=== PATIENT | male | born 1950 | race Caucasian/White ===

== ENCOUNTER → 2018-01-19 09:18 | Outpatient (CLI) | payer MEDICARE, SELFPAY ==
[2018-01-19 10:27] LABS: Hemoglobin A1C% w Est Avg Glu 5.7 % (4.0-6.0)
[2018-01-19 10:32] LABS: Alanine Aminotransferase 151 IU/L (21-72); Albumin 4.2 g/dL (3.5-5.0); Albumin Globulin Ratio 1.1 (1.0-2.8); Alkaline Phosphatase 89 U/L (38-126); Aspartate Aminotransferase 168 IU/L (17-59); BUN Creatinine Ratio 20.9 (6-22); Bilirubin Total 0.9 mg/dL (0.2-1.3); Blood Urea Nitrogen 23 mg/dL (9-20); Calcium 9.2 mg/dL (8.4-10.2); Carbon Dioxide 27 mmol/L (22-32); Chloride 104 mmol/L (98-107); Cholesterol 105 mg/dL (140-199); Estimated Glomerular Filt Rate > 60.0 mL/min (>60); Globulin 3.9 g/dL (1.7-4.1); Glucose 112 mg/dL (80-110); HDL Cholesterol 52 mg/dL (40-60); HEMOLYSIS 18 (0-50); LDL Cholesterol Calculated 20 mg/dL (<100); Potassium 4.3 mmol/L (3.4-5.1); Sodium 142 mmol/L (137-145); Total Protein 8.1 g/dL (6.3-8.2); Triglycerides 166 mg/dL (35-150)
[2018-01-19 11:16] LABS: Thyroid Stimulating Hormone 1.76 uIU/mL (0.47-4.68)
== END ==
PROVIDERS: PCP Family Medicine; Visit Provider Family Medicine
DX: E03.9 Hypothyroidism, unspecified (principal); E78.5 Hyperlipidemia, unspecified; I10 Essential (primary) hypertension
CPT/HCPCS: 36415; 80053; 80061; 83036; 84443

== ENCOUNTER → 2018-02-18 09:07 | Outpatient (CLI) | payer MEDICARE, SELFPAY ==
[2018-02-18 09:39] LABS: Add Manual Diff / Slide Review NO; Basophils Percent Auto 0.2 % (0-2); Eosinophils Percent Auto 1.3 % (2-4); Hematocrit 47.8 % (41-53); Hemoglobin 16.6 g/dL (13.5-17.5); Lymphocytes Percent Auto 58.1 % (25-40); Mean Corpuscular HGB Conc 34.8 % (30-36); Mean Corpuscular Hemoglobin 32.5 PG (26-34); Mean Corpuscular Volume 93.6 fL (80-100); Monocytes Percent Auto 6.4 % (3-14); Neutrophils Absolute Auto 5100 /uL (1500-7000); Platelet Count 151 X10^3/uL (150-400); Red Blood Cell Count 5.11 X10^6/uL (4.5-5.9); Red Cell Distribution Width 13.2 % (11.6-14.8)
[2018-02-18 10:00] LABS: Alanine Aminotransferase 139 IU/L (21-72); Albumin 4.2 g/dL (3.5-5.0); Albumin Globulin Ratio 1.1 (1.0-2.8); Alkaline Phosphatase 81 U/L (38-126); Aspartate Aminotransferase 120 IU/L (17-59); BUN Creatinine Ratio 18.6 (6-22); Bilirubin Total 0.8 mg/dL (0.2-1.3); Blood Urea Nitrogen 26 mg/dL (9-20); Carbon Dioxide 28 mmol/L (22-32); Chloride 102 mmol/L (98-107); Estimated Glomerular Filt Rate 50.5 mL/min (>60); Globulin 3.7 g/dL (1.7-4.1); Glucose 116 mg/dL (80-110); HEMOLYSIS < 15 (0-50); Potassium 5.1 mmol/L (3.4-5.1); Sodium 144 mmol/L (137-145); Total Protein 7.9 g/dL (6.3-8.2)
== END ==
PROVIDERS: PCP Family Medicine; Visit Provider Family Medicine
DX: R74.0 Nonspecific elevation of levels of transaminase and lactic acid dehydrogenase [LDH] (principal); R23.8 Other skin changes
CPT/HCPCS: 36415; 80053; 85025

== ENCOUNTER → 2018-09-14 09:53 | Outpatient (CLI) | payer MEDICARE, SELFPAY ==
[2018-09-14 10:21] LABS: Add Manual Diff / Slide Review NO; Basophils Absolute Auto 100 /uL (0-100); Basophils Percent Auto 0.5 % (0-2); Eosinophils Absolute Auto 200 /uL (0-450); Eosinophils Percent Auto 1.1 % (2-4); Hematocrit 46.9 % (41-53); Lymphocytes Absolute Auto 10500 /uL (1100-4500); Lymphocytes Percent Auto 57.7 % (25-40); Mean Corpuscular HGB Conc 34.2 % (30-36); Mean Corpuscular Hemoglobin 32.3 PG (26-34); Mean Corpuscular Volume 94.4 fL (80-100); Monocytes Absolute Auto 900 /uL (0-900); Monocytes Percent Auto 4.8 % (3-14); Neutrophils Absolute Auto 6500 /uL (1500-7000); Neutrophils Percent Auto 35.9 % (50-75); Platelet Count 149 X10^3/uL (150-400); Red Blood Cell Count 4.96 X10^6/uL (4.5-5.9); Red Cell Distribution Width 13.3 % (11.6-14.8); White Blood Cell Count 18.2 X10^3/uL (4.5-11.0)
[2018-09-14 10:36] LABS: Alanine Aminotransferase 36 IU/L (21-72); Albumin 4.4 g/dL (3.5-5.0); Albumin Globulin Ratio 1.2 (1.0-2.8); Alkaline Phosphatase 76 U/L (38-126); Aspartate Aminotransferase 27 IU/L (17-59); BUN Creatinine Ratio 14.3 (6-22); Bilirubin Total 0.6 mg/dL (0.2-1.3); Blood Urea Nitrogen 20 mg/dL (9-20); Calcium 9.6 mg/dL (8.4-10.2); Carbon Dioxide 29 mmol/L (22-32); Chloride 102 mmol/L (98-107); Estimated Glomerular Filt Rate 50.5 mL/min (>60); Globulin 3.8 g/dL (1.7-4.1); Glucose 109 mg/dL (80-110); HEMOLYSIS < 15 (0-50); Potassium 5.3 mmol/L (3.4-5.1); Sodium 141 mmol/L (137-145); Total Protein 8.2 g/dL (6.3-8.2)
== END ==
PROVIDERS: PCP Family Medicine; Visit Provider Family Medicine
DX: R89.9 Unspecified abnormal finding in specimens from other organs, systems and tissues (principal)
CPT/HCPCS: 36415; 80053; 85025

== ENCOUNTER → 2019-08-03 10:16 | Outpatient (CLI) | payer MEDICARE, SELFPAY ==
[2019-08-03 11:52] LABS: Hematocrit 43.9 % (41-53); Mean Corpuscular HGB Conc 34.2 % (30-36); Mean Corpuscular Hemoglobin 32.1 PG (26-34); Mean Corpuscular Volume 93.8 fL (80-100); Platelet Count 148 X10^3/uL (150-400); Red Blood Cell Count 4.68 X10^6/uL (4.5-5.9); Red Cell Distribution Width 13.2 % (11.6-14.8); White Blood Cell Count 14.6 X10^3/uL (4.5-11.0)
[2019-08-03 11:56] LABS: Alanine Aminotransferase 50 IU/L (<50); Albumin 4.5 g/dL (3.5-5.0); Albumin Globulin Ratio 1.2 (1.0-2.8); Alkaline Phosphatase 77 U/L (38-126); Aspartate Aminotransferase 45 IU/L (17-59); BUN Creatinine Ratio 20.9 (6-22); Bilirubin Total 0.8 mg/dL (0.2-1.3); Blood Urea Nitrogen 24 mg/dL (9-20); Calcium 9.5 mg/dL (8.4-10.2); Carbon Dioxide 27 mmol/L (22-32); Chloride 104 mmol/L (98-107); Cholesterol 101 mg/dL (140-199); Estimated Glomerular Filt Rate > 60.0 mL/min (>60); Globulin 3.7 g/dL (1.7-4.1); Glucose 107 mg/dL (80-110); HDL Cholesterol 31 mg/dL (40-60); HEMOLYSIS 28 (0-50); LDL Cholesterol Calculated 47 mg/dL (<100); Potassium 4.5 mmol/L (3.4-5.1); Sodium 139 mmol/L (137-145); Total Protein 8.2 g/dL (6.3-8.2); Triglycerides 113 mg/dL (35-150); Uric Acid 10.5 mg/dL (3.5-8.5)
[2019-08-03 12:06] LABS: Neutrophils Absolute Manual 7008 /uL (3000-5900); RBC Morphology Normal Morphology; Smudge Cells 2+; Total Cells Counted 100
[2019-08-03 12:47] LABS: TSH w/ Reflex to FT4 1.71 uIU/mL (0.47-4.68)
== END ==
PROVIDERS: PCP Family Medicine; Referring Provider Family Medicine; Visit Provider Family Medicine
DX: D72.829 Elevated white blood cell count, unspecified (principal); E03.9 Hypothyroidism, unspecified; I10 Essential (primary) hypertension; E78.5 Hyperlipidemia, unspecified; M10.9 Gout, unspecified
CPT/HCPCS: 36415; 80053; 80061; 84443; 84550; 85025

== ENCOUNTER → 2019-08-10 09:44 | Outpatient (CLI) | payer MEDICARE, SELFPAY ==
[2019-08-10 11:42] LABS: Hematocrit 43.1 % (41-53); Mean Corpuscular HGB Conc 34.9 % (30-36); Mean Corpuscular Hemoglobin 32.7 PG (26-34); Mean Corpuscular Volume 93.9 fL (80-100); Platelet Count 137 X10^3/uL (150-400); Red Blood Cell Count 4.59 X10^6/uL (4.5-5.9); Red Cell Distribution Width 13.2 % (11.6-14.8); White Blood Cell Count 14.9 X10^3/uL (4.5-11.0)
[2019-08-10 12:19] LABS: Neutrophils Absolute Manual 8046 /uL (3000-5900); Total Cells Counted 100
[2019-08-10 12:20] LABS: Smudge Cells 2+
--- NOTE | 2019-08-29 09:43 | ONC.MSW ---
Description: New Referral Navigation Activity: Reviewed referral for acuity, medical status, and immediate needs. Forwarded to scheduling for next available initial consult time.
== END ==
PROVIDERS: PCP Family Medicine; Referring Provider Family Medicine; Visit Provider Family Medicine
DX: D72.829 Elevated white blood cell count, unspecified (principal)
CPT/HCPCS: 36415; 85025

== ENCOUNTER → 2019-10-10 15:01 | Outpatient (CLI) | payer MEDICARE, SELFPAY ==
--- NOTE | 2019-10-10 15:02 | DI.RAD.S_ITS ---
PROCEDURE: XR FOOT LT MIN 3V INDICATIONS: left forefoot pain x2 days, remote h/o fx TECHNIQUE: 3 views of the foot were acquired. COMPARISON: None. FINDINGS: Bones: Irregularity at the 3rd and 4th digit proximal phalanges. This may be the sequelae of remote fracture. No periosteal reaction. No dislocations. No suspicious bony lesions. Soft tissues: No tibiotalar joint effusion. Achilles tendon appears normal. IMPRESSION: No definite acute fracture. Fractures of the 3rd and 4th digit proximal phalanges. Suspect chronic fractures. Correlate for point tenderness. Dictated by: Demetri Rader M.D. on 10/10/2019 at 15:33 Approved by: Demetri Rader M.D. on 10/10/2019 at 15:36
== END ==
PROVIDERS: PCP Family Medicine; Referring Provider Family Medicine; Visit Provider Family Medicine
DX: M79.672 Pain in left foot (principal); S92.512A Displaced fracture of proximal phalanx of left lesser toe(s), initial encounter for closed fracture; X58.XXXA Exposure to other specified factors, initial encounter
CPT/HCPCS: 73630

== ENCOUNTER → 2019-12-12 08:15 | Outpatient (CLI) | payer MEDICARE, SELFPAY | PROVIDERS: PCP Family Medicine; Referring Provider Family Medicine; Visit Provider Family Medicine | DX: M10.9 Gout, unspecified (principal) | CPT/HCPCS: 36415; 84550 ==

== ENCOUNTER → 2020-01-16 09:36 | Outpatient (CLI) | payer MEDICARE, SELFPAY ==
[2020-01-16 11:28] LABS: Uric Acid 7.5 mg/dL (3.5-8.5)
== END ==
PROVIDERS: PCP Family Medicine; Referring Provider Family Medicine; Visit Provider Family Medicine
DX: M10.071 Idiopathic gout, right ankle and foot (principal)
CPT/HCPCS: 36415; 84550

== ENCOUNTER → 2020-02-10 10:41 | Outpatient (CLI) | payer MEDICARE, SELFPAY ==
[2020-02-10 12:06] LABS: Add Manual Diff / Slide Review NO; Basophils Absolute Auto 100 /uL (0-100); Basophils Percent Auto 0.4 % (0-2); Eosinophils Absolute Auto 300 /uL (0-450); Eosinophils Percent Auto 2.1 % (2-4); Hematocrit 47.5 % (41-53); Hemoglobin 15.7 g/dL (13.5-17.5); Lymphocytes Absolute Auto 7700 /uL (1100-4500); Lymphocytes Percent Auto 61.5 % (25-40); Mean Corpuscular HGB Conc 33.1 % (30-36); Mean Corpuscular Hemoglobin 31.9 PG (26-34); Mean Corpuscular Volume 96.4 fL (80-100); Monocytes Absolute Auto 700 /uL (0-900); Monocytes Percent Auto 5.4 % (3-14); Neutrophils Absolute Auto 3800 /uL (1500-7000); Neutrophils Percent Auto 30.6 % (50-75); Platelet Count 137 X10^3/uL (150-400); Red Blood Cell Count 4.92 X10^6/uL (4.5-5.9); Red Cell Distribution Width 14.3 % (11.6-14.8); White Blood Cell Count 12.5 X10^3/uL (4.5-11.0)
[2020-02-10 12:16] LABS: Uric Acid 6.7 mg/dL (3.5-8.5)
[2020-02-10 12:30] LABS: Alanine Aminotransferase 39 IU/L (<50); Albumin 4.2 g/dL (3.5-5.0); Albumin Globulin Ratio 1.1 (1.0-2.8); Alkaline Phosphatase 76 U/L (38-126); Aspartate Aminotransferase 33 IU/L (17-59); BUN Creatinine Ratio 23.1 (6-22); Bilirubin Total 0.4 mg/dL (0.2-1.3); Blood Urea Nitrogen 28 mg/dL (9-20); Calcium 9.4 mg/dL (8.4-10.2); Carbon Dioxide 30 mmol/L (22-32); Chloride 105 mmol/L (98-107); Estimated Glomerular Filt Rate 59.6 mL/min (>60); Globulin 3.7 g/dL (1.7-4.1); Glucose 104 mg/dL (80-110); HEMOLYSIS 17 (0-50); Potassium 4.5 mmol/L (3.4-5.1); Sodium 140 mmol/L (137-145); Total Protein 7.9 g/dL (6.3-8.2)
== END ==
PROVIDERS: Internal Medicine; PCP Family Medicine; Referring Provider Family Medicine; Visit Provider Family Medicine
DX: D72.820 Lymphocytosis (symptomatic) (principal); M10.071 Idiopathic gout, right ankle and foot
CPT/HCPCS: 36415; 80053; 84550; 85025

== ENCOUNTER → 2020-03-19 10:03 | Outpatient (CLI) | payer MEDICARE, SELFPAY ==
[2020-03-19 11:20] LABS: Uric Acid 5.2 mg/dL (3.5-8.5)
== END ==
PROVIDERS: PCP Family Medicine; Referring Provider Family Medicine; Visit Provider Family Medicine
DX: M10.071 Idiopathic gout, right ankle and foot (principal)
CPT/HCPCS: 36415; 84550

== ENCOUNTER → 2020-05-04 13:36 | Outpatient (CLI) | payer MEDICARE, SELFPAY ==
[2020-05-04] MEDS: COVID-19 VACC, Ad26(JANSSEN)/PF 0.5 ML IM (13:38)
== END ==
PROVIDERS: PCP Family Medicine; Visit Provider Internal Medicine
DX: Z23 Encounter for immunization (principal)
CPT/HCPCS: 0031A; 91303

== ENCOUNTER → 2020-10-09 10:59 | Outpatient (CLI) | payer MEDICARE, SELFPAY ==
[2020-10-09 11:33] LABS: Alanine Aminotransferase 56 IU/L (<50); Albumin Globulin Ratio 1.2 (1.0-2.8); Alkaline Phosphatase 63 U/L (38-126); Aspartate Aminotransferase 66 IU/L (17-59); Bilirubin Total 0.6 mg/dL (0.2-1.3); Blood Urea Nitrogen 26 mg/dL (9-20); Calcium 9.3 mg/dL (8.4-10.2); Carbon Dioxide 25 mmol/L (22-32); Chloride 109 mmol/L (98-107); Estimated Glomerular Filt Rate 54.7 mL/min (>60); Globulin 3.3 g/dL (1.7-4.1); Glucose 106 mg/dL (80-110); HEMOLYSIS < 15 (0-50); Potassium 4.8 mmol/L (3.4-5.1); Sodium 141 mmol/L (137-145); Total Protein 7.3 g/dL (6.3-8.2)
[2020-10-09 12:08] LABS: TSH w/ Reflex to FT4 1.18 uIU/mL (0.47-4.68)
== END ==
PROVIDERS: PCP Family Medicine; Referring Provider Family Medicine; Visit Provider Family Medicine
DX: E03.9 Hypothyroidism, unspecified (principal); R74.01 Elevation of levels of liver transaminase levels
CPT/HCPCS: 36415; 80053; 84443

== ENCOUNTER → 2020-10-25 12:11 | Outpatient (CLI) | payer MEDICARE, SELFPAY ==
[2020-10-25 13:08] LABS: Alanine Aminotransferase 37 IU/L (<50); Albumin Globulin Ratio 1.3 (1.0-2.8); Alkaline Phosphatase 64 U/L (38-126); Aspartate Aminotransferase 47 IU/L (17-59); BUN Creatinine Ratio 19.5 (6-22); Bilirubin Total 0.5 mg/dL (0.2-1.3); Blood Urea Nitrogen 22 mg/dL (9-20); Calcium 9.2 mg/dL (8.4-10.2); Carbon Dioxide 24 mmol/L (22-32); Chloride 108 mmol/L (98-107); Estimated Glomerular Filt Rate > 60.0 mL/min (>60); Glucose 111 mg/dL (80-110); HEMOLYSIS < 15 (0-50); Potassium 4.2 mmol/L (3.4-5.1); Sodium 140 mmol/L (137-145)
== END ==
PROVIDERS: PCP Family Medicine; Referring Provider Family Medicine; Visit Provider Family Medicine
DX: R79.89 Other specified abnormal findings of blood chemistry (principal); I10 Essential (primary) hypertension
CPT/HCPCS: 36415; 80053

== ENCOUNTER 2022-10-02 16:16 | Emergency (ER) | payer OTHER, SELFPAY ==
[2022-10-02] VITALS (23 sets, daily range): BP systolic 113–164; BP diastolic 59–104; PULSE 69–148; RESP 12–25; TEMP 37.4; O2SAT 91–99; BMI 33.5
--- NOTE | 2022-10-02 16:35 | DI.RAD.S_ITS ---
PROCEDURE: XR CHEST 1V INDICATIONS: chest pain TECHNIQUE: One view of the chest was acquired. COMPARISON: None. FINDINGS: Surgical changes and devices: None. Lungs and pleura: On this semiupright study, no large pneumothorax can be seen. There is minimal blunting of the right costophrenic angle. No infiltrates are seen. Mediastinum: Mediastinal contours appear normal. Heart size is normal. Bones and chest wall: No suspicious bony lesions. Age-appropriate bony degenerative changes are seen. Overlying soft tissues appear unremarkable. IMPRESSION: Small right-sided pleural effusion. Dictated by: Lan Cohn M.D. on 10/02/2022 at 16:56 Approved by: Lan Cohn M.D. on 10/02/2022 at 16:56
[2022-10-02 17:11] LABS: Hematocrit 41.6 % (41-53); Hemoglobin 14.3 g/dL (13.5-17.5); Mean Corpuscular HGB Conc 34.5 % (30-36); Mean Corpuscular Hemoglobin 33.3 PG (26-34); Mean Corpuscular Volume 96.6 fL (80-100); Platelet Count 68 X10^3/uL (150-400); Red Cell Distribution Width 13.8 % (11.6-14.8); White Blood Cell Count 10.1 X10^3/uL (4.5-11.0)
[2022-10-02 17:13] LABS: INR 1.1 (0.9-1.3); Prothrombin Time 12.2 SECONDS (10.1-12.7)
[2022-10-02 17:14] LABS: Add Manual Diff / Slide Review YES
[2022-10-02 17:15] LABS: PTT Partial Thromboplastin Tim 31 SECONDS (26-36)
[2022-10-02 17:19] LABS: Alanine Aminotransferase 84 IU/L (<50); Albumin 4.3 g/dL (3.5-5.0); Albumin Globulin Ratio 1.3 (1.0-2.8); Alkaline Phosphatase 67 U/L (38-126); Aspartate Aminotransferase 78 IU/L (17-59); BUN Creatinine Ratio 21.1 (6-22); Bilirubin Total 0.9 mg/dL (0.2-1.3); Blood Urea Nitrogen 28 mg/dL (9-20); Calcium 9.2 mg/dL (8.4-10.2); Carbon Dioxide 24 mmol/L (22-32); Chloride 104 mmol/L (98-107); Creatine Kinase 33 U/L (55-170); Estimated Glomerular Filt Rate 57 mL/min (>60); Globulin 3.4 g/dL (1.7-4.1); Glucose 95 mg/dL (80-110); HEMOLYSIS < 15 (0-50); Lipase 93 U/L (23-300); Magnesium 1.7 mg/dL (1.6-2.3); Sodium 137 mmol/L (137-145); Total Protein 7.7 g/dL (6.3-8.2)
[2022-10-02] MEDS: ASPIRIN 81 MG CHEW TAB 324 MG PO (17:19)
[2022-10-02] MEDS: SODIUM CHLORIDE 0.9% 1,000 ML 1000 ML IV (17:20)
[2022-10-02 17:21] LABS: Ictotest Urine Negative (Negative)
[2022-10-02 17:28] LABS: NT-proBNP (BNP-Adult 18+) 956 pg/mL (<125)
[2022-10-02 17:31] LABS: Troponin I < 0.012 ng/mL (0.01-0.034)
[2022-10-02 17:35] LABS: D Dimer 226 ng/ml (<500)
[2022-10-02 17:40] LABS: Neutrophils Absolute Manual 3737 /uL (3000-5900); Smudge Cells 2+; Total Cells Counted 100
[2022-10-02 17:41] LABS: RBC Morphology Normal Morphology
[2022-10-02] MEDS: dilTIAZem 5 MG/ML SDV 10 MG IV (18:11)
[2022-10-02] MEDS: dilTIAZem 5 MG/ML SDV 20 MG IV (18:33)
--- NOTE | 2022-10-02 18:38 | ED_ITS ---
HPI - Arrhythmia/Palpitations General Chief Complaint: Arrhythmia/Palpitations Stated Complaint: MA Time Seen by Provider: 10/02/22 17:54 Source: patient Mode of arrival: Ambulatory History of Present Illness HPI narrative: Patient 72-year-old male history of gout, hypertension, hypothyroid presents today with elevated heart rate. He was seen evaluated he is postop cataract surgery done but he went for his preop check and they sent him to the ED be has a heart rate was in the 140s. Patient is completely asymptomatic. He denies any chest pain palpitations shortness of breath nausea vomiting or any other symptoms. Related Data Home Medications Medication Instructions Recorded Confirmed allopurinol 100 mg tablet 200 mg PO QAM 10/02/22 10/02/22 levothyroxine 50 mcg tablet 50 mcg PO QAM 10/02/22 10/02/22 lisinopril 20 mg tablet 20 mg PO QAM 10/02/22 10/02/22 Previous Rx's Medication Instructions Recorded Disabled Parking #1 ea 07/15/21 omeprazole magnesium 20 mg 20 mg PO QDAY #90 tabs 10/23/21 tablet,delayed release (Prilosec OTC) ibuprofen 800 mg tablet 800 mg PO BEDTIME PRN pain #90 tabs 08/01/22 apixaban 5 mg tablet (Eliquis) 5 mg PO BID #60 tabs 10/02/22 metoprolol tartrate 25 mg tablet 25 mg PO BID #90 tabs 10/02/22 Allergies Allergy/AdvReac Type Severity Reaction Status Date / Time No Known Drug Allergies Allergy Verified 10/02/22 16:34 Review of Systems Review of Systems ROS Unobtainable: All systems reviewed & are unremarkable except as noted in HPI and below Patient History Medical History Acquired hypothyroidism (02/12/16) Chronic lymphocytic leukemia Chronic venous stasis dermatitis Essential hypertension (02/12/16) Gout Hyperlipidemia (02/26/16) Obesity (BMI 30-39.9) Surgical History Anesthesia History of surgery on arm (~05/21/05) Family History Brother Diabetes mellitus Heart disease Brother Age: 79 Stroke Mother Cancer Heart disease Social History Smoking Status: Current every day smoker Smoking Status: Current every day smoker alcohol intake frequency: 0-2 drinks per day Substance Use Type: marijuana Exam Initial Vital Signs Initial Vital Signs: Vital Signs Temperature 99.3 F 10/02/22 16:27 Pulse Rate 148 H 10/02/22 16:27 Respiratory Rate 20 10/02/22 16:27 Blood Pressure 135/94 H 10/02/22 16:27 Pulse Oximetry 99 10/02/22 16:27 Oxygen Delivery Method Room Air 10/02/22 16:27 GENERAL: Alert pleasant well-appearing 72-year-old male and in no acute distress. HEENT: Head atraumatic,EOMI, pupils reactive, face symmetric, moist mucous membranes CARDIOVASCULAR: Regular tachycardic no murmurs RESPIRATORY: Breath sounds equal bilaterally, no wheezes rales or rhonchi. ABDOMEN: Soft, nontender. Normoactive bowel sounds all 4 quadrants. No guarding or rebound. EXTREMITIES: Normal range of motion, no clubbing or edema. Neurovascularly intact NEUROLOGICAL: Alert and oriented x4. SKIN: Warm, dry, no laceration, no petechiae, no rashes or lesions. Course Orders Ordered: Discontinued Medications Apixaban (Apixaban 5 Mg Tablet) 5 mg PO NOW ONE Stop: 10/02/22 18:51 Last Admin: 10/02/22 19:09 Dose: 5 mg Documented By: DAPHNEY Aspirin (Aspirin 81 Mg Chew Tab) 324 mg PO NOW ONE Stop: 10/02/22 16:36 Last Admin: 10/02/22 17:19 Dose: 324 mg Documented By: DAPHNEY Diltiazem HCl (Diltiazem 5 Mg/Ml Sdv) 10 mg IV NOW ONE Stop: 10/02/22 17:56 Last Admin: 10/02/22 18:11 Dose: 10 mg Documented By: JEREMY Diltiazem HCl (Diltiazem 5 Mg/Ml Sdv) 20 mg IV NOW ONE Stop: 10/02/22 18:31 Last Admin: 10/02/22 18:33 Dose: 20 mg Documented By: JEREMY Sodium Chloride (Normal Saline 0.9%) 1,000 mls @ 1,000 mls/hr IV BOLUS ONE Stop: 10/02/22 18:09 Last Infusion: 10/02/22 18:18 Dose: 0 mls/hr Documented By: Admin: 10/02/22 17:20 Dose: 1,000 mls/hr Documented By: DAPHNEY Metoprolol Tartrate (Metoprolol Tartrate 5 Mg/5 Ml Inj) 5 mg IV NOW ONE Stop: 10/02/22 18:42 Last Admin: 10/02/22 18:43 Dose: 5 mg Documented By: JEREMY Metoprolol Tartrate (Metoprolol Ir 25 Mg Tablet) 25 mg PO NOW ONE Stop: 10/02/22 20:07 Last Admin: 10/02/22 20:19 Dose: 25 mg Documented By: JEREMY Vital Signs Vital signs: Vital Signs - 8 hr 10/02/22 20:00 10/02/22 20:00 10/02/22 20:15 Pulse Rate 72 72 Respiratory Rate 22 14 Blood Pressure 130/76 Pulse Oximetry 99 MDM - Arrhythmia/Palpitations Lab Data 10/02/22 17:00 10/02/22 17:00 Labs: Lab Results 10/02/22 10/02/22 10/02/22 Range/Units 16:44 17:00 17:00 WBC 10.1 (4.5-11.0) X10^3/uL RBC 4.30 L (4.5-5.9) X10^6/uL Hgb 14.3 (13.5-17.5) g/dL Hct 41.6 (41-53) % MCV 96.6 (80-100) fL MCH 33.3 (26-34) PG MCHC 34.5 (30-36) % RDW 13.8 (11.6-14.8) % Plt Count 68 L (150-400) X10^3/uL Neut % (Auto) Not Reportable Lymph % (Auto) Not Reportable [place] % (Auto) Not Reportable Eos % (Auto) Not Reportable Baso % (Auto) Not Reportable Lymph # (Auto) Not Reportable [place] # (Auto) Not Reportable Baso # (Auto) Not Reportable Total Counted 100 Seg Neutrophils % 30.0 L (38-70) % Band Neutrophils % 7.0 (3-7) % Lymphocytes % (Manual) 58.0 H (25-45) % Monocytes % (Manual) 5.0 (2-11) % Neutrophils # (Manual) 3737 (2470-1558) /uL [place] Cells 2+ H RBC Morphology Normal morphology PT 12.2 (10.1-12.7) SECONDS INR 1.1 (0.9-1.3) APTT 31 (26-36) SECONDS D-Dimer (<500) ng/ml Sodium (137-145) mmol/L Potassium (3.4-5.1) mmol/L Chloride (98-107) mmol/L Carbon Dioxide (22-32) mmol/L BUN (9-20) mg/dL Creatinine (0.66-1.25) mg/dL Estimated GFR (>60) mL/min BUN/Creatinine Ratio (6-22) Glucose (80-110) mg/dL Calcium (8.4-10.2) mg/dL Magnesium (1.6-2.3) mg/dL Total Bilirubin (0.2-1.3) mg/dL AST (17-59) IU/L ALT (<50) IU/L Alkaline Phosphatase (38-126) U/L Total Creatine Kinase (55-170) U/L Troponin I (0.01-0.034) ng/mL NT-Pro-B Natriuret Pep (<125) pg/mL Total Protein (6.3-8.2) g/dL Albumin (3.5-5.0) g/dL Globulin (1.7-4.1) g/dL Albumin/Globulin Ratio (1.0-2.8) Lipase (23-300) U/L Ur Bilirubin Confirm Negative (Negative) 10/02/22 10/02/22 10/02/22 Range/Units 17:00 17:00 17:00 WBC (4.5-11.0) X10^3/uL RBC (4.5-5.9) X10^6/uL Hgb (13.5-17.5) g/dL Hct (41-53) % MCV (80-100) fL MCH (26-34) PG MCHC (30-36) % RDW (11.6-14.8) % Plt Count (150-400) X10^3/uL Neut % (Auto) Lymph % (Auto) [place] % (Auto) Eos % (Auto) Baso % (Auto) Lymph # (Auto) [place] # (Auto) Baso # (Auto) Total Counted Seg Neutrophils % (38-70) % Band Neutrophils % (3-7) % Lymphocytes % (Manual) (25-45) % Monocytes % (Manual) (2-11) % Neutrophils # (Manual) (4622-7374) /uL [place] Cells RBC Morphology PT (10.1-12.7) SECONDS INR (0.9-1.3) APTT (26-36) SECONDS D-Dimer 226 (<500) ng/ml Sodium 137 (137-145) mmol/L Potassium 4.0 (3.4-5.1) mmol/L Chloride 104 (98-107) mmol/L Carbon Dioxide 24 (22-32) mmol/L BUN 28 H (9-20) mg/dL Creatinine 1.33 H (0.66-1.25) mg/dL Estimated GFR 57 L (>60) mL/min BUN/Creatinine Ratio 21.1 (6-22) Glucose 95 (80-110) mg/dL Calcium 9.2 (8.4-10.2) mg/dL Magnesium 1.7 (1.6-2.3) mg/dL Total Bilirubin 0.9 (0.2-1.3) mg/dL AST 78 H (17-59) IU/L ALT 84 H (<50) IU/L Alkaline Phosphatase 67 (38-126) U/L Total Creatine Kinase 33 L (55-170) U/L Troponin I < 0.012 (0.01-0.034) ng/mL NT-Pro-B Natriuret Pep 956 H (<125) pg/mL Total Protein 7.7 (6.3-8.2) g/dL Albumin 4.3 (3.5-5.0) g/dL Globulin 3.4 (1.7-4.1) g/dL Albumin/Globulin Ratio 1.3 (1.0-2.8) Lipase 93 (23-300) U/L Ur Bilirubin Confirm (Negative) Urine Dip Bedside Urine Glucose Negative Bedside Urine Bilirubin + 1 Bedside Urine Ketone - Negative Urine Specific [place] 1.020 Bedside Urine Occult Blood - Negative Bedside Urine pH 6.0 Bedside Urine Protein - Negative Bedside Urine Urobilinogen - Negative Bedside Urine Nitrite - Negative Bedside Urine Leukocytes - Negative Esterase Imaging Data Chest x-ray: Radiologist's Impresson: PROCEDURE:? XR CHEST 1V ? INDICATIONS:? chest pain ? TECHNIQUE:? One view of the chest was acquired.? ? COMPARISON:? None. ? FINDINGS:? ? Surgical changes and devices:? None.? ? Lungs and pleura:? On this semiupright study, no large pneumothorax can be seen.? There is minimal blunting of the right costophrenic angle.? No infiltrates are seen. ? Mediastinum:? Mediastinal contours appear normal.? Heart size is normal.? ? Bones and chest wall:? No suspicious bony lesions.? Age-appropriate bony degenerative changes are seen. ? Overlying soft tissues appear unremarkable.? ? ? IMPRESSION:? Small right-sided pleural effusion. ? ? Dictated by: Lan Cohn M.D. on 10/02/2022 at 16:56 ?? ECG Data Interpretation: EKG 1. Tachycardia appears to be a one-to-one flutter heart rate [address] changes EKG 2. Atrial flutter rate [address] changes MDM Narrative Medical decision making narrative: Patient is 72-year-old male who is completely asymptomatic presents today with the elevated heart rate. Rate is very stable at 141 nonresponsive to fluids initially given 10 mg of diltiazem without any response and then given 20 mg of diltiazem still without any response. Blood pressure remained stable given 5 mg of Lopressor high suspicion for an atrial flutter one-to-one unlikely to be a sinus tachycardia. He responded well to the Lopressor clear flutter waves with heart rate now in 60s and 70s. After his heart rate slowed he actually reports relief of pressure. Dr. Beltre, cardiology updated patient's symptoms test results recommends outpatient follow-up. Metoprolol tartrate 25 mg twice a day and Eliquis. Will need outpatient ultrasound. Patient has no risk factors or bleeding he is given a 1st dose of Eliquis and metoprolol in the ED. Discussed outpatient follow-up. I had a discussion with patient in regards to taking anticoagulation in what to do if bleeding or head injury occurs. He understands. Discharge Plan Departure Patient Disposition: Home Clinical Impression: Atrial flutter Instructions: DI for Atrial Flutter Activity Restrictions/Additional Instructions: *You have been diagnosed with atrial flutter *What to do: At this time please monitor blood pressure 1 to 2 times daily. You were started on metoprolol and Eliquis. Metoprolol can lower your blood pressure so please monitor. *Continue to take medications as directed Metoprolol 25 mg twice a day Eliquis 5 mg twice a day, this causes increased risk of bleeding. Do not take ibuprofen/Motrin/Aleve/naproxen/aspirin or other NSAIDS *Follow up with your primary care provider in 2-3 days or call [phone] *Return to ER if you should have dizziness lightheadedness palpitations passing out or any new, worsening or concerning symptoms Prescriptions: New metoprolol tartrate 25 mg tablet 25 mg PO BID Qty: 90 0RF Eliquis 5 mg tablet 5 mg PO BID Qty: 60 0RF No Action (DME) Disabled Parking See Rx Instructions .ROUTE .MEDSUPPLY Qty: 1 0RF Rx Instructions: I find this patient to be medically disabled and qualified for Disabled Parking as indicated, and signed, on the Accompanying Disabled Parking Application for Individuals Prilosec OTC 20 mg tablet,delayed release (DR/EC) 20 mg PO QDAY Qty: 90 3RF ibuprofen 800 mg tablet 800 mg PO BEDTIME PRN (Reason: pain) Qty: 90 0RF lisinopril 20 mg tablet 20 mg PO QAM Rx Instructions: take 1 tablet by mouth once daily allopurinol 100 mg tablet 200 mg PO QAM levothyroxine 50 mcg tablet 50 mcg PO QAM Rx Instructions: TAKE ONE TABLET BY MOUTH EVERY MORNING Referrals: Ryanne Reid DO [Physician] - Stand Alone Forms: Patient Portal/API
[2022-10-02] MEDS: METOPROLOL TARTRATE 5 MG/5 ML INJ IV (18:43)
[2022-10-02] MEDS: APIXABAN 5 MG TABLET PO (19:09)
[2022-10-02] MEDS: METOPROLOL IR 25 MG TABLET PO (20:19)
== END 2022-10-02 20:32 | disposition home or self-care (01) ==
PROVIDERS: Emergency Medicine; Emergency Provider Emergency Medicine; PCP Family Medicine; Referring Provider Family Medicine
DX: I48.92 Unspecified atrial flutter (principal); R00.0 Tachycardia, unspecified; Z79.01 Long term (current) use of anticoagulants
CPT/HCPCS: 36415; 71045; 80053; 81003; 82550; 83690; 83735; 83880; 84484; 85007; 85025; 85379; 85610; 85730; 93005; 93010; 96361; 96374; 96375; 99284

== ENCOUNTER → 2024-04-04 10:10 | Outpatient (CLI) | payer MEDICARE, SELFPAY ==
[2024-04-04 11:05] LABS: Alanine Aminotransferase 52 IU/L (<50); Albumin 4.6 g/dL (3.5-5.0); Albumin Globulin Ratio 1.4 (1.0-2.8); Alkaline Phosphatase 58 U/L (38-126); Aspartate Aminotransferase 57 IU/L (17-59); BUN Creatinine Ratio 16.4 (6-22); Bilirubin Total 0.9 mg/dL (0.2-1.3); Blood Urea Nitrogen 21 mg/dL (9-20); Calcium 9.8 mg/dL (8.4-10.2); Carbon Dioxide 28 mmol/L (22-32); Chloride 106 mmol/L (98-107); Cholesterol 138 mg/dL (140-199); Estimated Glomerular Filt Rate 59 mL/min (>60); Globulin 3.4 g/dL (1.7-4.1); Glucose 111 mg/dL (80-110); HDL Cholesterol 63 mg/dL (40-60); HEMOLYSIS 17 (0-50); LDL Cholesterol Calculated 51 mg/dL (<100); Potassium 4.8 mmol/L (3.4-5.1); Sodium 141 mmol/L (137-145); Triglycerides 122 mg/dL (35-150)
[2024-04-04 11:35] LABS: Prostate Specific Antigen Scrn 0.357 ng/mL (0.1-4.0)
[2024-04-04 11:42] LABS: TSH w/ Reflex to FT4 1.24 uIU/mL (0.47-4.68)
[2024-04-04 11:47] LABS: Add Manual Diff / Slide Review YES; Hematocrit 42.7 % (41-53); Hemoglobin 14.3 g/dL (13.5-17.5); Mean Corpuscular HGB Conc 33.6 % (30-36); Mean Corpuscular Hemoglobin 33.8 PG (26-34); Mean Corpuscular Volume 100.5 fL (80-100); Platelet Count 80 X10^3/uL (150-400); Red Blood Cell Count 4.24 X10^6/uL (4.5-5.9); Red Cell Distribution Width 13.8 % (11.6-14.8); White Blood Cell Count 12.7 X10^3/uL (4.5-11.0)
[2024-04-04 12:06] LABS: Neutrophils Absolute Manual 3810 /uL (3000-5900); Total Cells Counted 100
[2024-04-04 12:07] LABS: Smudge Cells 2+
== END ==
PROVIDERS: PCP Family Medicine; Referring Provider Family Medicine; Visit Provider Family Medicine
DX: D69.6 Thrombocytopenia, unspecified (principal); E66.9 Obesity, unspecified; Z12.5 Encounter for screening for malignant neoplasm of prostate; E78.5 Hyperlipidemia, unspecified; K73.2 Chronic active hepatitis, not elsewhere classified; R73.03 Prediabetes; E03.9 Hypothyroidism, unspecified; I10 Essential (primary) hypertension; N28.9 Disorder of kidney and ureter, unspecified
CPT/HCPCS: 36415; 80053; 80061; 84443; 85007; 85025; G0103